=== PATIENT | male | born 1995 | race Caucasian/White ===

== ENCOUNTER 2023-04-27 15:09 | Emergency (ER) | payer MEDICAID ==
[~2023-04-27] VITALS: Ht 180.3 cm; Wt 66.0 kg
[2023-04-27 15:33] VITALS: BP 129/89; PULSE 100; RESP 16; TEMP 98.6; O2SAT 100
== END 2023-04-27 15:57 | disposition home or self-care (01) ==
LOC: ER 15:09
DX: S43.004A Unspecified dislocation of right shoulder joint, initial encounter (principal); X58.XXXA Exposure to other specified factors, initial encounter; Y93.89 Activity, other specified; Y92.89 Other specified places as the place of occurrence of the external cause; Y99.8 Other external cause status
CPT/HCPCS: 23650; 99284; A4565

== ENCOUNTER 2023-12-11 08:14 | Emergency (ER) | payer MEDICAID ==
[~2023-12-11] VITALS: Ht 175.3 cm; Wt 75.0 kg
[2023-12-11 08:16] VITALS: O2SAT 99
[2023-12-11] MEDS: LIDOCAINE HCL 1% 20ML VIAL INFIL ONE (08:30)
[2023-12-11] MEDS: DIAZEPAM 5 MG/ML 2ML SYR IV ONE (09:13)
[2023-12-11] MEDS: MORPHINE SULFATE 4 MG/ML INJ (FOR IV/IM USE) IV STA (09:13)
[2023-12-11 10:19] VITALS: BP 142/76; PULSE 88; RESP 14; TEMP 98.7
== END 2023-12-11 10:20 | disposition home or self-care (01) ==
LOC: ER 08:14
DX: S43.004A Unspecified dislocation of right shoulder joint, initial encounter (principal); X58.XXXA Exposure to other specified factors, initial encounter; Y93.89 Activity, other specified; Y92.89 Other specified places as the place of occurrence of the external cause; Y99.8 Other external cause status
CPT/HCPCS: 73020; 73030; 23650; 96374; 96375; 99285; J3360; J3490; J2270; Z7610

== ENCOUNTER 2024-10-16 07:40 | Emergency (ER) | payer MEDICAID ==
[~2024-10-16] VITALS: Ht 172.7 cm; Wt 73.0 kg
[2024-10-16 07:43] VITALS: O2SAT 100
[2024-10-16] MEDS: SODIUM CHLORIDE 0.9% 1,000 ML IV ONE (08:27)
[2024-10-16 08:49] LABS: BASOPHILS % 0.3 % (0.0-2.0); DIFFERENTIAL COMMENT 0; EOSINOPHILS % 1.2 % (0.0-5.0); HEMATOCRIT. 40.8 % (42.0-52.0); HEMOGLOBIN. 13.9 g/dL (14.0-18.0); LYMPHOCYTES % 11.8 % (20.0-50.0); MEAN CORPUSCULAR HEMOGLOBIN 35.5 pg (28.0-32.0); MEAN CORPUSCULAR HGB CONC 34.1 g/dL (31.0-37.0); MEAN CORPUSCULAR VOLUME 104.1 fL (80.0-94.0); MONOCYTES % 6.6 % (2.0-8.0); NEUTROPHILS % 80.1 % (40.0-76.0); PLATELET 206 x1000/uL (130-400); RED BLOOD CELL COUNT 3.92 mill/uL (4.7-6.1); RED CELL DISTRIBUTION WIDTH 13.6 % (11.6-14.6); WHITE BLOOD COUNT 7.8 x1000/uL (4.5-11.0)
[2024-10-16 09:06] LABS: CHLORIDE 101 mEq/L (98-107); POTASSIUM 3.7 mEq/L (3.5-5.1); SODIUM 138 mEq/L (136-145)
[2024-10-16 09:07] LABS: CALCIUM 9.6 mg/dL (8.7-10.4); CARBON DIOXIDE 30 mEq/L (21-32)
[2024-10-16 09:13] LABS: CREATININE 0.8 mg/dL (0.6-1.3); GLUCOSE 94 mg/dL (70-105); UREA NITROGEN BLOOD 7 mg/dL (9-23)
[2024-10-16 09:18] LABS: TROPONIN I HIGH SENSITIVITY < 4 ng/L (3.0-53)
[2024-10-16 09:51] VITALS: BP 127/78; PULSE 83; RESP 13; TEMP 37.2; O2SAT 100
== END 2024-10-16 10:22 | disposition home or self-care (01) ==
LOC: ER 07:40
DX: R55 Syncope and collapse (principal)
CPT/HCPCS: 80048; 85025; 84484; 36415; 96360; 99283; J7030; Z7610 ×3; A4606

== ENCOUNTER 2024-10-20 20:33 | Emergency (ER) | payer MEDICAID ==
[~2024-10-20] VITALS: Ht 172.7 cm; Wt 73.0 kg
[2024-10-20 20:41] VITALS: O2SAT 99
[2024-10-20 21:36] LABS: BASOPHILS % 0.7 % (0.0-2.0); EOSINOPHILS % 2.5 % (0.0-5.0); HEMATOCRIT. 44.1 % (42.0-52.0); MEAN CORPUSCULAR HEMOGLOBIN 35.3 pg (28.0-32.0); MEAN CORPUSCULAR HGB CONC 34.1 g/dL (31.0-37.0); MEAN CORPUSCULAR VOLUME 103.6 fL (80.0-94.0); MEAN PLATELET VOLUME 8.9 fl (7.4-10.4); MONOCYTES % 5.7 % (2.0-8.0); NEUTROPHILS % 66.1 % (40.0-76.0); PLATELET 223 x1000/uL (130-400); RED BLOOD CELL COUNT 4.26 mill/uL (4.7-6.1); RED CELL DISTRIBUTION WIDTH 13.9 % (11.6-14.6); WHITE BLOOD COUNT 7.9 x1000/uL (4.5-11.0)
[2024-10-20 21:42] LABS: CHLORIDE 103 mEq/L (98-107); POTASSIUM 3.8 mEq/L (3.5-5.1); SODIUM 141 mEq/L (136-145)
[2024-10-20 21:43] LABS: CARBON DIOXIDE 27 mEq/L (21-32); DIFFERENTIAL COMMENT 1
[2024-10-20 21:44] LABS: CALCIUM 8.8 mg/dL (8.7-10.4)
[2024-10-20 21:48] LABS: CREATININE 0.9 mg/dL (0.6-1.3); GLUCOSE 95 mg/dL (70-105)
[2024-10-20 21:49] LABS: UREA NITROGEN BLOOD 7 mg/dL (9-23)
[2024-10-20 21:51] LABS: TROPONIN I HIGH SENSITIVITY < 4 ng/L (3.0-53)
[2024-10-20 21:58] LABS: ETHANOL BLOOD 308 mg/dL (<10)
[2024-10-20 23:45] VITALS: BP 141/87; PULSE 100; RESP 18; TEMP 37; O2SAT 97
== END 2024-10-20 23:49 | disposition home or self-care (01) ==
LOC: ER 20:33
DX: F10.129 Alcohol abuse with intoxication, unspecified (principal); Y90.8 Blood alcohol level of 240 mg/100 ml or more
CPT/HCPCS: 36415; 80048; 80320; 84484; 85025; 99284; G0480